=== PATIENT | female | born 1980 | race Caucasian/White ===

== ENCOUNTER 2025-02-19 08:23 | Day surgery (SDC) | payer OTHER ==
[2025-02-17 12:14] VITALS: BMI 26.6
[2025-02-19] MEDS ORDERED: FENTANYL CITRATE/PF 50 MCG/ML VIAL ONE (11:07)
[2025-02-19] MEDS ORDERED: ROPIVACAINE HCL/PF 100 MG/20 ML VIAL ONE (11:07)
[2025-02-19] MEDS ORDERED: MIDAZOLAM HCL 2 MG/2 ML SINGLE DOSE VIAL ONE (11:07)
[2025-02-19] MEDS ORDERED: DEXAMETHASONE SOD PHOSPHATE 4 MG/1 ML VIAL ONE (11:33)
[2025-02-19] MEDS ORDERED: ceFAZolin SODIUM 1 GM VIAL ONE (11:33)
[2025-02-19] MEDS ORDERED: ONDANSETRON 4 MG/2 ML VIAL ONE (11:33)
[2025-02-19] MEDS ORDERED: SEVOFLURANE 250 ML BTL ONE (11:34)
[2025-02-19] MEDS ORDERED: PROPOFOL 20 ML ONE (11:35)
[2025-02-19] MEDS ORDERED: ROCURONIUM BROMIDE 50 MG/5 ML SYRINGE ONE (11:41)
[2025-02-19] MEDS ORDERED: TRANEXAMIC ACID 1000 MG/10 ML VIAL ONE (12:17)
[2025-02-19] MEDS ORDERED: oxyCODONE HCL 5 MG TABLET PO PRN ×2 (13:33)
[2025-02-19] MEDS ORDERED: PROMETHAZINE HCL 25 MG/1 ML VIAL IVPB PRN (13:34)
[2025-02-19] MEDS ORDERED: ONDANSETRON 4 MG/2 ML VIAL IVPUSH PRN (13:34)
[2025-02-19] MEDS ORDERED: LACTATED RINGERS SOLUTION 1,000 ML IV SCH (13:45)
[2025-02-19] MEDS ORDERED: GLYCOPYRROLATE 0.2 MG/1 ML VIAL ONE ×2 (13:47→13:48)
[2025-02-19] MEDS ORDERED: NEOSTIGMINE METHYLSULFATE 0.5 MG/1 ML - 10 ML MDV ONE (13:47)
[2025-02-19] MEDS ORDERED: KETOROLAC TROMETHAMINE 30 MG/1 ML VIAL ONE (14:29)
[2025-02-19] MEDS ORDERED: ACETAMINOPHEN INJECTION 100 ML ONE (14:29)
[2025-02-19] MEDS: ACETAMINOPHEN 1000 MG/100 ML BAG IVPB ONE (14:30)
[2025-02-19] MEDS: KETOROLAC TROMETHAMINE 30 MG/1 ML VIAL IVPUSH SCH (14:34)
[2025-02-19 15:17] VITALS: RESP 18
[2025-02-19] MEDS: ONDANSETRON *ODT* 4 MG TABLET ONE (15:35)
[2025-02-19 15:46] VITALS: TEMP 97.9
[2025-02-19 16:20] VITALS: BP 105/50; PULSE 70
[2025-02-19] MEDS ORDERED: ACETAMINOPHEN 500 MG TABLET (FP) PO SCH (22:00)
== END 2025-02-19 16:20 | disposition home or self-care (01) ==
LOC: FASU 08:23
PROVIDERS: ATTEND Orthopaedic Surgery Sports Medicine
PROC: 0RJJ4ZZ Inspection of Right Shoulder Joint, Percutaneous Endoscopic Approach (ICD-10-PCS; principal; 2025-02-19 12:17)
PROC: 0PU Upper Bones, Supplement (ICD-10-PCS; 2025-02-19 12:17)
DX: S42.291A Other displaced fracture of upper end of right humerus, initial encounter for closed fracture (principal); M25.311 Other instability, right shoulder; X58.XXXA Exposure to other specified factors, initial encounter; Y93.9 Activity, unspecified; Y92.9 Unspecified place or not applicable
CPT/HCPCS: 29806; 29827; C1713; 81025; 94760; J0131; Q0162